=== PATIENT | female | born 1965 | race Caucasian/White ===

== ENCOUNTER → 2018-11-13 | Outpatient (CLI) | payer OTHER ==
[2016-03-26 11:00] VITALS: BP 130/76
[~2018-11-13] MED LIST: CHOL100013 PO; GUAI12003 PO; IBUP200T44 PO
--- NOTE | 2018-11-13 16:14 | RAD ---
Examination: CT head and maxillofacial bones HISTORY: History of frontal headache and sinus pain for 6 months. COMPARISON: None available TECHNIQUE: Axial CT images of the head was performed without contrast. Axial CT images of the maxillary facial bones were performed without contrast. Coronal and sagittal reformats are performed Exposure: One or more of the following individualized dose reduction techniques were utilized for this examination: 1. Automated exposure control 2. Adjustment of the mA and/or kV according to patient size 3. Use of iterative reconstruction technique FINDINGS: No abnormal attenuation within the brain parenchyma. No evidence of acute intracranial hemorrhage. No extra-axial fluid collections. No mass effect or midline shift. Ventricular size is appropriate. Basal cisterns are patent. No fractures identified.Gvoea-white differentiation is preserved.Globes and orbits are within normal limits. The bilateral mastoid air cells are clear. There is moderate mucosal thickening identified in the bilateral anterior and posterior ethmoidal sinuses. There is moderate mucosal thickening identified in the right maxillary sinus. The bilateral sphenoid sinuses are patent. 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 IMPRESSION: 1. Bilateral ethmoidal sinus and right maxillary sinus disease as described above. 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 2. No acute intracranial findings. . Electronically signed by: Clif Connolly MD (11/13/2018 4:09 PM) [id number]
== END | disposition home or self-care (01) ==
LOC: CT 11:09
PROVIDERS: ATTEND Family Medicine
DX: J32.0 Chronic maxillary sinusitis (principal); J32.2 Chronic ethmoidal sinusitis
CPT/HCPCS: 70450; 70486

== ENCOUNTER → 2019-08-04 | Outpatient (CLI) | payer OTHER ==
[2016-03-26 11:00] VITALS: BP 130/76
--- NOTE | 2019-08-04 14:49 | KCIC ---
EXAM: Left shoulder, 3 views. HISTORY: Pain. COMPARISON: None. FINDINGS: 3 views of the left shoulder obtained. There is no fracture, dislocation or subluxation. IMPRESSION: No acute osseous finding. Electronically signed by: Katie Allen MD (08/04/2019 2:46 PM) [place] [id number]
== END | disposition home or self-care (01) ==
LOC: KCIC 13:48
PROVIDERS: ATTEND Family Medicine
DX: M75.52 Bursitis of left shoulder (principal)
CPT/HCPCS: 73030